=== PATIENT | female | born 1990 | race Caucasian/White ===

== ENCOUNTER → 2024-05-31 | Outpatient (CLI) | payer BC ==
[2024-05-31 19:10] LABS: Basophils # (A) 0.04 X 10*3/uL (0.00-0.10); Basophils % (A) 0.6 %; Eosinophils # (A) 0.09 X 10*3/uL (0.04-0.35); Eosinophils % (A) 1.3 %; HCT 39.2 % (37.2-46.3); HGB 13.1 g/dL (12.0-15.0); Lymphocytes # (A) 1.85 X 10*3/uL (0.90-5.00); MCH 30.4 pg (27.0-32.0); MCHC 33.4 g/dL (32.0-37.0); Mean Platelet Volume 10.7 FL (9.5-12.2); Monocytes # (A) 0.41 X 10*3/uL (0.20-1.00); Monocytes % (A) 5.8 %; NRBC Per 100 WBC 0 X 10*3/uL (0.00-0.01); Neutrophils % (A) 65.9 %; Platelet Count 184 X 10*3/uL (140-440); RBC 4.31 X 10*6/uL (4.10-5.20); RDW 12.7 % (11.5-14.5); WBC 7.12 X 10*3/uL (4.50-10.00)
== END | disposition home or self-care (01) ==
LOC: LABPAT 14:25
PROVIDERS: ATTEND Obstetrics & Gynecology Obstetrics
DX: Z01.818 Encounter for other preprocedural examination (principal)
CPT/HCPCS: 85025

== ENCOUNTER 2024-06-07 07:52 | Day surgery (SDC) | payer BC ==
[2024-06-06 09:28] VITALS: BMI 24.5
[~2024-06-07 07:52] MED LIST: HYDROmorphone 0.5 MG/0.5 ML SYRINGE IVP PRN; Pre Op ABX Message 1 EACH MISC MISCELLANE ONE
[2024-06-07 08:17] VITALS: RESP 16; TEMP 97
[2024-06-07] MEDS: IV FLUID CONTINUATION 1,000 ML IV ONE (08:26)
[2024-06-07] MEDS: LACTATED RINGERS 1,000 ML IV SCH (08:27)
[2024-06-07] MEDS: ONDANSETRON 4 MG/2 ML VIAL IVP ONE (08:27)
[2024-06-07] MEDS: DEXAMETHASONE SOD PHOSPHATE 4 MG/ML 1 ML VIAL IV ONE (08:27)
[2024-06-07] MEDS ORDERED: KETOROLAC 15 MG/ML 1 ML VIAL ONE (09:02)
[2024-06-07] MEDS ORDERED: PROPOFOL 10 MG/ML 20 ML VIAL IV ONE (09:02)
[2024-06-07] MEDS ORDERED: MIDAZOLAM 2 MG/2 ML VIAL ONE (09:02)
[2024-06-07] MEDS ORDERED: fentaNYL (PF) 50 MCG/ML 2 ML AMP ONE (09:02)
[2024-06-07] MEDS ORDERED: GLYCOPYRROLATE 0.2 MG/ML 2 ML VIAL ONE (09:02)
[2024-06-07] MEDS ORDERED: LIDOCAINE 1% INJ 10MG/ML (20 ML MDV) ONE (09:02)
--- NOTE | 2024-06-07 10:31 | P.OP ---
Date of Procedure: 06/07/24 Preoperative Diagnosis: Heavy menstrual bleeding Postoperative Diagnosis: Same Procedure(s) Performed: Hysteroscopy, dilation and curettage, endometrial ablation with NovaSure Anesthesia: MAC Surgeon: Rita Theodore Estimated Blood Loss (ml): 5 IV fluids (ml): 400 Urine output (ml): 50 Pathology: other (Endometrial curettings) Condition: stable Disposition: PACU Indications for Procedure: Heavy menstrual bleeding Operative Findings: Proliferative endometrial cavity, length of 6 width of 4.4, power of 145 total cycle time 94 seconds with NovaSure Description of Procedure: Patient was taken back to the operating suite where general anesthesia was obtained without difficulty by the anesthesia department. She was prepped and draped in the normal sterile fashion in the dorsolithotomy position. A red rubber catheter was used to drain the bladder clear yellow urine. A weighted speculum is placed in the posterior vaginal vault, the anterior lip of the cervix was visualized and grasped with a single-tooth tenaculum. The endocervical canal was then serially dilated. A hysteroscope was placed through the cervix and toward the endometrial cavity, an intact cavity was appreciated with the proliferative endometrium. Hysteroscope was removed. A sharp curettage was then performed with the specimen being sent to pathology for analysis. The NovaSure was then opened and set to the appropriate measurements for this patient's uterine cavity, length of 6, width of 4.4 after cavity assessment was completed a power of 145 for 94 seconds was allowed to cycle. After cycle was complete the NovaSure was removed without difficulty. The single-tooth tenaculum was taken off of the antilipid the cervix and hemostasis was appreciated. All counts were noted be correct x 2. Patient tolerated procedure well and was taken to the recovery room awake in stable condition.
[2024-06-07 11:19] VITALS: BP 109/62; PULSE 54
== END 2024-06-07 11:20 | disposition home or self-care (01) ==
LOC: OR 07:52
PROVIDERS: ATTEND Obstetrics & Gynecology Obstetrics
DX: N92.1 Excessive and frequent menstruation with irregular cycle (principal); N94.6 Dysmenorrhea, unspecified; N94.3 Premenstrual tension syndrome; F17.200 Nicotine dependence, unspecified, uncomplicated; Z88.8 Allergy status to other drugs, medicaments and biological substances; Z80.41 Family history of malignant neoplasm of ovary
CPT/HCPCS: 81025; 58563; J2250; J1100; J2405; J2003; J3010; J1885; J2704; J1596

== ENCOUNTER 2024-06-21 07:30 | Day surgery (SDC) | payer BC ==
[2024-06-18 17:35] VITALS: BMI 24.2
[2024-06-21] MEDS ORDERED: LIDOCAINE 1% (10MG/ML) FOR IV START INTRADERMA PRN (07:43)
[2024-06-21 08:02] VITALS: TEMP 97.5
[2024-06-21] MEDS: LACTATED RINGERS 1,000 ML IV SCH (08:13)
[2024-06-21] MEDS ORDERED: PROPOFOL 10 MG/ML 20 ML VIAL IV ONE (08:58)
[2024-06-21] MEDS ORDERED: LIDOCAINE 1% INJ 10MG/ML (20 ML MDV) ONE (08:58)
--- NOTE | 2024-06-21 09:08 | P.PCN ---
Date of Procedure: 06/21/24 Procedure(s) Performed: BRIEF HISTORY: Patient is a 34-year-old, pleasant, white female scheduled for upper endoscopy as a part of evaluation of chronic epigastric pain/atypical chest pain for the last 1 month duration. She went to the emergency room on 05/23/2024 and had an ultrasound of the abdomen that was unremarkable. Subsequently was started on Pepcid 20 mg twice daily and Carafate with some improvement. Recently her medications were changed omeprazole 20 mg daily and since then abdominal pain has improved.. PROCEDURE PERFORMED: Esophagogastroduodenoscopy with biopsy. PREOPERATIVE DIAGNOSIS: Chronic epigastric pain of 1 month duration. IV sedation per anesthesia. PROCEDURE: After informed consent was obtained, the patient was brought into the endoscopy unit. IV sedation was administered by Anesthesia under continuous monitoring. Initially the Olympus GIF-140 video endoscope was inserted into the mouth. Esophagus intubated without any difficulty. It was gradually advanced into the stomach and duodenum and carefully examined. The bulb and the second part of the duodenum appeared normal. The scope at this time was withdrawn to the stomach, adequately insufflated with air, and upon careful examination, mucosa of the antrum, and multiple the mucosa and biopsies were done from this area. Mucosa of the body, cardia and the fundus appeared normal. The scope was then withdrawn into the esophagus. The GE junction was located at 39 cm from the incisors. Small hiatal hernia noted. The esophagus appeared normal. There were no erosions or ulcerations seen, biopsies were done from the distal esophagus and the patient tolerated the procedure well. IMPRESSION: 1. Mild antral l gastritis. 2. No evidence of esophagitis or peptic ulcer disease. 3. Small hiatal hernia. RECOMMENDATIONS: The findings of this examination were discussed with the patient as well as her family. She was advised to follow-up with the biopsy results. Continue with omeprazole 20 mg daily and Carafate as needed and follow antireflux measures..
[2024-06-21 09:31] VITALS: BP 104/60; PULSE 54; RESP 16
== END 2024-06-21 09:53 | disposition home or self-care (01) ==
LOC: ORWHC2ENDO 07:30
PROVIDERS: ATTEND Internal Medicine Gastroenterology
DX: K29.50 Unspecified chronic gastritis without bleeding (principal); K31.A11 Gastric intestinal metaplasia without dysplasia, involving the antrum; K21.00 Gastro-esophageal reflux disease with esophagitis, without bleeding; K22.70 Barrett's esophagus without dysplasia; K44.9 Diaphragmatic hernia without obstruction or gangrene; Z79.899 Other long term (current) drug therapy; Z87.891 Personal history of nicotine dependence; Z88.8 Allergy status to other drugs, medicaments and biological substances
CPT/HCPCS: 81025; 43239; J2003; J2704; 88305